=== PATIENT | male | born 1960 | race Two or more races ===

== ENCOUNTER 2024-10-02 01:10 | Inpatient (IN) | payer BC, OTHER ==
[~2024-10-02] VITALS: Ht 180.3 cm; Wt 94.0 kg
[2024-10-02] VITALS (17 sets, daily range): BP systolic 119–161; BP diastolic 63–96; PULSE 45–56; RESP 12–19; TEMP 97.1–98.2; O2SAT 95–99
--- NOTE | 2024-10-02 01:29 | ED.PDOC ---
History of Present Illness HPI Comments 64 y/o M, with a Hx of HTN, is BIBA for c/o non-radiating, sternal chest pain, today. Patient endorses on having intermittent onset of chest pressure for the past 3x weeks, with most recent and longest onset occurring at 0010, this morning. Patient comments on taking 4x baby ASA prior to EMS arrival. Per EMS report, patient was found hypertensive, with two readings of 230/150 and 220/115. All remaining vitals were within normal limits. Patient is further reported to have been off HTN medications, due to managing via lifestyle changes, with a baseline normal systolic blood pressure range of 170-180's. Patient denies having any shortness of breath, palpitations, nausea, vomiting, fever, chills, or other associated symptoms or modifiers at this time. Time Seen by MD: 01:10 Reviewed Notes: Nurses Notes, Supervisor Insulation Notes, Medications, Allergies Allergies: Coded Allergies: Acetaminophen (Verified Allergy, Unknown, 10/02/24) Hydrocodone (Verified Allergy, Unknown, 10/02/24) Information Source: Patient, Emergency Med Personnel Mode of Arrival: EMS Severity: Moderate Timing: Weeks Duration: Since onset Prehospital treatment: 12 Lead EKG, Convenience Store Manager Past Medical History PAST MEDICAL HISTORY: HTN Surgical History (Other): left shoulder rotator cuff Sx Family History Family History: Reviewed,noncontributory to illness, No family hx of Cancer, No family hx of Heart nicole, No family hx of HTN, No family hx ofKidney nicole, No family hx of Liver nicole, No family hx of Lung nicole, No family hx of Stroke, Family hx of DM Social History Smoker: Non-Smoker Alcohol: Occasionally Drugs: Denies Drug Use Lives In: Home Constitutional: denies: chills, diaphoresis, fatigue, fever, malaise, sweats, weakness, others EENTM: denies: blurred vision, double vision, ear bleeding, ear discharge, ear drainage, ear pain, ear ringing, eye pain, eye redness, hearing loss, mouth pain, mouth swelling, nasal discharge, nose bleeding, nose congestion, nose pain, photophobia, tearing, throat pain, throat swelling, voice changes, others Respiratory: denies: cough, hemoptysis, orthopnea, SOB at rest, shortness of breath, SOB with excertion, stridor, wheezing, others Cardiovascular: reports: chest pain; denies: dizzy spells, diaphoresis, Dyspnea on exertion, edema, irregular heart beat, left arm pain, lightheadedness, palpitations, PND, syncope, others Gastrointestinal: denies: abdomen distended, abdominal pain, blood streaked bowels, constipated, diarrhea, dysphagia, difficulty swallowing, hematemesis, melena, nausea, poor appetite, poor fluid intake, rectal bleeding, rectal pain, vomiting, others Genitourinary: denies: burning, dysuria, flank pain, frequency, hematuria, incontinence, penile discharge, penile sore, pain, testicle pain, testicle swelling, urgency, others Neurological: denies: dizziness, fainting, headache, left sided numbness, left sided weakness, numbness, paresthesia, pre-existing deficit, right sided numbn ess, right sided weakness, seizure, speech problems, tingling, tremors, weakness, others Musculoskeletal: denies: back pain, gout, joint pain, joint swelling, muscle pain, muscle stiffness, neck pain, others Integumetry: denies: bruises, change in color, change in hair/nails, dryness, laceration, lesions, lumps, rash, wounds, others Allergic/Immunocompromised: denies: Difficulty Healing, Frequent Infections, Hives, Itching, others Hematologic/Lymphatic: denies: anemia, blood clots, easy bleeding, easy bruising, swollen glands, others Endocrine: denies: excessive hunger, excessive sweating, excessive thirst, excessive urination, flushing, intolerance to cold, intolerance to heat, unexplained weight gain, unexplained weight loss, others Psychiatric: denies: anxiety, bipolar disorder, depression, hopeless, panic disorder, schizophrenia, sleepless, suicidal, others All Other Systems: Reviewed and Negative Physical Exam General Appearance: Moderate Distress HEENT: Normal ENT Inspection, Pharynx Normal, TMs Normal Neck: Full Range of Motion, Non-Tender, Normal, Normal Inspection Respiratory: Chest Non-Tender, Lungs Clear, No Accessory Muscle Use, No Respiratory Distress, Normal Breath Sounds Cardiovascular: No Edema, No JVD, No Murmur, No Gallop, Normal Peripheral Pulses, Regular Rate/Rhythm Breast Exam: Deferred Gastrointestinal: No Organomegaly, Non Tender, No Pulsatile Mass, Normal Bowel Sounds, Soft Genitalia: Deferred Pelvic: Deferred Rectal: Deferred Extremities: No calf tenderness, Normal capillary refill, Normal inspection, Normal range of motion, Non-tender, No pedal edema Musculoskeletal : Apperance: Normal Neurologic: Alert, emulsion operator II-XII nml as Tested, Motor Weakness, Normal Affect, Normal Mood, No Sensory Deficits Cerebellar Function: Normal Reflexes: Normal Skin: Dry, Normal Color, Warm Lymphatic: No Adenopathy Was a procedure done? Was a procedure done?: No EKG EKG : Pulse Rate (adult): 73 [place]: Normal Cardiac Rhythm: NSR Block: None Hypertrophy: None ST: Ant (ST elevation in anterior leads) Differential Dx Considerations may include: [place], ACS, PE, anxiety, angina, costochondritis, pericarditis, musculoskeletal pain X-Ray, Labs, Meds, VS Vital Signs Date Time Temp Pulse Resp B/P (MAP) Pulse Ox O2 Delivery O2 Flow Rate FiO2 10/02/24 02:27 97.8 53 13 144/83 (103) 98 97.8 10/02/24 02:11 59 10/02/24 01:29 73 10/02/24 01:13 73 10/02/24 01:10 98.0 85 24 210/130 (156) 100 Lab Test 10/02/24 02:04 10/02/24 01:40 10/02/24 01:20 Range/Units Troponin I High Sensitivity 4880 *H 5104 *H </=54 ng/L Urine Color Light-yellow Yellow Urine Clarity Clear Clear Urine pH 5.5 5.0-9.0 Urine Specific [place] 1.007 1.001-1.035 Urine Protein Negative Negative Urine Ketones 1+ H Negative Urine Blood Negative Negative /uL Urine Nitrite Negative Negative Urine Bilirubin Negative Negative Urine Urobilinogen Normal Negative mg/dL Urine Leukocyte Esterase Negative Negative /uL Urine RBC <1 0 - 3 /hpf Urine WBC 1 0 - 3 /hpf Urine Squamous Epithelial Cells Few <5 /hpf Urine Bacteria None seen None Seen /hpf Urine Glucose Normal Normal mg/dL White Blood Count 5.2 4.4-10.8 10^3/uL Red Blood Count 4.88 4.5-5.90 10^6/uL Hemoglobin 15.4 13.5-17.5 g/dL Hematocrit 46.4 41.0-53.0 % Mean Corpuscular Volume 95.2 80.0-100.0 fL Mean Corpuscular Hemoglobin 31.7 28.0-32.0 pg Mean Corpuscular Hemoglobin Concent 33.3 32.0-36.0 g/dL Red Cell Distribution Width 13.8 11.8-14.3 % Platelet Count 236 140-450 10^3/uL Mean Platelet Volume 9.3 6.9-10.8 fL Neutrophils (%) (Auto) 55.1 37.0-80.0 % Lymphocytes (%) (Auto) 33.4 10.0-50.0 % Monocytes (%) (Auto) 7.9 0.0-12.0 % Eosinophils (%) (Auto) 3.3 0.0-7.0 % Basophils (%) (Auto) 0.3 0.0-2.0 % Neutrophils # (Auto) 2.8 1.6-8.6 10 ^3/uL Lymphocytes # (Auto) 1.7 0.4-5.4 10 ^3/uL Monocytes # (Auto) 0.4 0-1.3 10 ^3/uL Eosinophils # (Auto) 0.2 0-0.8 10 ^3/uL Basophils # (Auto) 0 0-0.2 10 ^3/uL Nucleated Red Blood Cells 0.0 % Prothrombin Time Pending Prothrombin Time INR Pending Activated Partial Thromboplast Time Pending Sodium Level 141 136-145 mmol/L Potassium Level 4.0 3.5-5.1 mmol/L Chloride Level 105 98-107 mmol/L Carbon Dioxide Level 23 20-31 mmol/L Anion Gap 13 5-15 Blood Urea Nitrogen 20 9-23 mg/dL Creatinine 0.94 0.700-1.30 mg/dL Glomerular Filtration Rate Calc 91 >90 mL/min BUN/Creatinine Ratio 21.3 H 10.0-20.0 Serum Glucose 99 74-106 mg/dL Calcium Level 10.9 H 8.7-10.4 mg/dL Total Bilirubin 0.6 0.2-1.0 mg/dL Aspartate Amino Transferase (AST) 20 13-40 U/L Alanine Aminotransferase (ALT) 21 7-40 U/L Alkaline Phosphatase 62 46-116 U/L B-Type Natriuretic Peptide 196.96 0-100 pg/mL Total Protein 6.9 5.7-8.2 g/dL Albumin 4.4 3.2-4.8 g/dL The CBC is within normal limits The chemistry panel is within normal limits The urine test is negative for infection At this time, the 1st troponin level came back elevated at 5104 The next troponin came back at 4880 We did review the EKG when the patient 1st arrived and we did send it to the STEMI news reel cameraman. He determined that it was not a STEMI smears We have repeated the EKG after the 1st troponin level came back and sent it back to the news reel cameraman but he stated that he will be taking the patient in the laborer [facility] in the morning. The patient was still not considered a STEMI We did give the patient a nitroglycerin drip because of the hypertensive crisis The patient also received heparin We discussed findings with the patient and he is in agreement with the management the patient was being admitted. Images Reviewed?: Images reviewed and evaluated by me Time of 1ST Reevaluation: 01:30 Reevaluation 1ST: Unchanged Patient Education/Counseling: Diagnosis, Treatment, Prognosis Family Education/Counseling: No Family Present Departure 1 Departure Time of Disposition: 03:09 Impression: Primary Impression: Acute chest pain Additional Impression: Non-STEMI (non-ST elevated myocardial infarction) Disposition: 09 ADMITTED INPATIENT Admit to: [facility] Condition: Fair Critical Care Note Critical Care Time?: Yes (55 min-critical care time only) Stability Stability form required: Yes Unstable for transfer: ICU, CCU, PCU, [facility] (Intensive VS monitoring), ED Physi nena Assesment (Clinical assesment) Heart Score Heart Score: Heart Score Response (Comments) Value History Moderate Suspicious [address]-Deviation 2 Age 45-64 1 Risk Factors 1 or 2 risk factors 1 Troponin >3 x's Normal limit 2 Total 7 I personally scribed for RAOUL RAMIREZ MD ([email or web address]) on 10/02/24 at 01:29. Electronically submitted by Jeremi Navarro [email or web address]). RAOUL RAMIREZ MD Oct 02, 2024 01:29
[2024-10-02] MEDS: ONDANSETRON HCL 4 MG/2 ML VIAL IV ONE (01:30)
[2024-10-02] MEDS: MORPHINE SULFATE 4 MG/ML SYR/VIAL IV ONE (01:30)
[2024-10-02 01:36] LABS: Basophils # (auto) 0 10 ^3/uL (0-0.2); Basophils % (auto) 0.3 % (0.0-2.0); Eosinophils # (auto) 0.2 10 ^3/uL (0-0.8); Eosinophils % (auto) 3.3 % (0.0-7.0); Hematocrit 46.4 % (41.0-53.0); Hemoglobin 15.4 g/dL (13.5-17.5); Lymphocytes # (auto) 1.7 10 ^3/uL (0.4-5.4); Lymphocytes % (auto) 33.4 % (10.0-50.0); Mean Corpuscular Hemoglobin 31.7 pg (28.0-32.0); Mean Corpuscular Hgb Conc. 33.3 g/dL (32.0-36.0); Mean Corpuscular Volume 95.2 fL (80.0-100.0); Monocytes # (auto) 0.4 10 ^3/uL (0-1.3); Monocytes % (auto) 7.9 % (0.0-12.0); Neutrophils # (auto) 2.8 10 ^3/uL (1.6-8.6); Neutrophils % (auto) 55.1 % (37.0-80.0); Platelet Count (auto) 236 10^3/uL (140-450); Red Blood Cells 4.88 10^6/uL (4.5-5.90); Red Cell Distribution Width 13.8 % (11.8-14.3); White Blood Cell 5.2 10^3/uL (4.4-10.8)
[2024-10-02 01:52] LABS: Alanine Aminotransferase 21 U/L (7-40); Albumin 4.4 g/dL (3.2-4.8); Alkaline Phosphatase 62 U/L (46-116); Anion Gap 13 (5-15); Aspartate Aminotransferase 20 U/L (13-40); BUN/Creatinine Ratio 21.3 (10.0-20.0); Blood Urea Nitrogen 20 mg/dL (9-23); Calcium 10.9 mg/dL (8.7-10.4); Carbon Dioxide 23 mmol/L (20-31); Chloride 105 mmol/L (98-107); Glucose 99 mg/dL (74-106); Sodium 141 mmol/L (136-145)
[2024-10-02 01:53] LABS: Bilirubin, Total 0.6 mg/dL (0.2-1.0); Total Protein 6.9 g/dL (5.7-8.2)
[2024-10-02] MEDS: NITROGLYCERIN 50MG/250ML 250 ML IV ONE (02:00)
[2024-10-02 02:16] LABS: Urine Bacteria None Seen /hpf (None Seen)
[2024-10-02 02:23] LABS: Urine Blood Negative /uL (Negative); Urine Clarity Clear (Clear); Urine Color Light-Yellow (Yellow); Urine Protein, UAD Negative (Negative); Urine Specific Gravity 1.007 (1.001-1.035); Urine Urobilinogen Normal (Negative); Urine WBC 1 /hpf (0 - 3); Urine pH 5.5 (5.0-9.0)
--- NOTE | 2024-10-02 03:27 | DVH ---
Examination: CXRP CLINICAL INDICATION: CP. COMPARISON: None. TECHNIQUE: Frontal radiograph of the chest was obtained. FINDINGS: Inhomogeneous radiopacities in left lower lung, suggestive of patchy consolidation. No pleural effusion on either side in current study. There is no pneumothorax. No evidence of cardiomegaly. No acute osseous abnormality is seen. Osteoarthritic changes at the visualized left glenohumeral joint. IMPRESSION: Patchy consolidation in left lower lung. Electronically Signed 10/02/2024 03:18 Estephania Cabrera
[2024-10-02 03:31] LABS: INR 0.97 (0.9-1.15); Prothrombin Time 10.3 sec (9.3-11.8)
--- NOTE | 2024-10-02 04:17 | ECG ---
[facility] Test Date: 2024-10-02 Test Time: 02:11:53 Pat Name: TODD COPE Department: ER Room: 0202T Gender: M Cafeteria Clerk: RAAD : 1960 Requested By: RAOUL RAMIREZ Order Number: [id number] Reading MD: Jhon Simmons Measurements Intervals [place] Rate: 59 P: 50 AK: 155 QRS: 36 QRSD: 112 T: 91 QT: 423 QTc: 419 Interpretive Statements Sinus rhythm Anteroseptal infarct, age indeterminate Minimal ST elevation, inferior leads Electronically Signed On 10-03-2024 17:41:16 PST by Jhon Simmons Please click the below link to view image of tracing.
--- NOTE | 2024-10-02 04:17 | ECG ---
[facility] Test Date: 2024-10-02 Test Time: 01:13:33 Pat Name: TODD COPE Department: ER Room: 0202T Gender: M Knowledge Management Advisor: ER : 1960 Requested By: RAOUL RAMIREZ Order Number: [id number] Reading MD: Jhon Simmons Measurements Intervals [place] Rate: 73 P: 37 NE: 164 QRS: 34 QRSD: 99 T: 85 QT: 397 QTc: 438 Interpretive Statements Sinus rhythm Probable anteroseptal infarct, recent Minimal ST elevation, inferior leads Electronically Signed On 10-03-2024 17:41:00 PST by Jhon Simmons Please click the below link to view image of tracing.
--- NOTE | 2024-10-02 04:17 | ECG ---
[facility] Test Date: 2024-10-02 Test Time: 04:13:22 Pat Name: TODD COPE Department: ER Room: 0202T Gender: M Senior Information Security Consultant: RAAD : 1960 Requested By: RAOUL RAMIREZ Order Number: [id number] Reading MD: Jhon Simmons Measurements Intervals [place] Rate: 47 P: 52 MO: 155 QRS: 39 QRSD: 96 T: 86 QT: 448 QTc: 396 Interpretive Statements Sinus bradycardia Anteroseptal infarct, age indeterminate Minimal ST elevation, inferior leads Electronically Signed On 10-03-2024 17:41:35 PST by Jhon Simmons Please click the below link to view image of tracing.
[2024-10-02] MEDS: HEPARIN DRIP/D5W 100UNITS/ML 250 ML IV SCH (04:25)
[2024-10-02] MEDS ORDERED: ONDANSETRON HCL 4 MG/2 ML VIAL IV PRN (05:15)
[2024-10-02] MEDS ORDERED: MORPHINE SULFATE INJ 2 MG/ml SYRG IV PRN (05:15)
[2024-10-02] MEDS ORDERED: NITROGLYCERIN 0.4 MG SL TAB SL PRN (05:15)
--- NOTE | 2024-10-02 06:07 | DVHHP2 ---
History of Present Illness Reason for Visit: Chest pain History of Present Illness 64-year-old male presents for evaluation of chest pain. Patient reports a three-week history of intermittent left-sided sharp chest pain that would radiate to his left arm causing pain/numbness. He states his symptoms would subside within 10 minutes. He states that yesterday the symptoms lasted longer than 30 minutes so he presented for further evaluation. He also reports taking an unknown dosage of metoprolol from his friend yesterday because his blood pressure was reading in the 160s. Patient does have a history of hypertension, last medication taken was nine years ago. Denies shortness or breath, nausea or vomiting. Denies any other acute complaints at the moment. Past Medical History Hypertension Past Surgical History Left shoulder Family History Noncontributory Smoke: No ALCOHOL: occassional Drugs: None Lives: with Family Review of Systems Review of Systems Review of systems are currently negative otherwise addressed in HPI. Allergies: Coded Allergies: Acetaminophen (Verified Allergy, Unknown, 10/02/24) Hydrocodone (Verified Allergy, Unknown, 10/02/24) Medications Current Medications Medications Dose Ordered Sig/Ty Route Start Time Stop Time Status Last Admin Dose Admin Heparin Sodium/ Dextrose 250 ml @ 10 mls/hr Q24H IV 10/02/24 04:30 10/02/24 04:25 10 MLS/HR Ondansetron HCl 4 mg Q4HP PRN IV 10/02/24 05:15 Nitroglycerin 0.4 mg Q5MINP PRN SL 10/02/24 05:15 Morphine Sulfate 2 mg Q30M PRN IV 10/02/24 05:15 Aspirin 162 mg DAILY PO 10/02/24 10:00 Atorvastatin Calcium 20 mg HS PO 10/02/24 22:00 Exam Vital Signs Vital Signs Date Time Temp Pulse Resp B/P (MAP) Pulse Ox O2 Delivery O2 Flow Rate FiO2 10/02/24 05:00 46 9 112/71 (85) 98 10/02/24 03:00 Room Air* 0 21 10/02/24 02:27 97.8 97.8 Exam Gen: 64-year-old male in mild distress Skin: Warm, dry, normal color and texture, no rash. HEENT: Normocephalic atraumatic, mucous membranes moist and pink. Neck: Cervical and supraclavicular nodes normal without enlargement, trachea is midline, thyroid gland is normal without masses. Pulmonary: Clear to auscultation and percussion bilaterally. Cardiac: Regular rate and rhythm. No murmur Abdomen: Soft, nontender, nondistended, bowel sounds present all 4 quadrants, no guarding, no rigidity, no organomegaly. Extremities: No cyanosis, clubbing, no edema Neuro: Cranial nerves II through XII grossly intact, normal affect and speech, no focal motor deficits. Labs/Xrays ORDERING PHYSICIAN: RAOUL RAMIREZ MD PROCEDURE(s): CXRP - CHEST PORTABLE REASON: CP ORDER NUMBER(s): [id number], ACCESSION NUMBER(s): [id number] Examination: CXRP CLINICAL INDICATION: CP. COMPARISON: None. TECHNIQUE: Frontal radiograph of the chest was obtained. FINDINGS: Inhomogeneous radiopacities in left lower lung, suggestive of patchy co nsolidation. No pleural effusion on either side in current study. There is no pneumothorax. No evidence of cardiomegaly. No acute osseous abnormality is seen. Osteoarthritic changes at the visualized left glenohumeral joint. IMPRESSION: Patchy consolidation in left lower lung. Electronically Signed 10/02/2024 03:18 Estephania Cabrera ATED BY: TANISHA LASSITER MD DICTATED DATE/TIME: 10/02/24 0318 Labs Test 10/02/24 04:04 10/02/24 01:40 10/02/24 01:20 Range/Units Troponin I High Sensitivity 4573 *H </=54 ng/L Urine Color Light-yellow Yellow Urine Clarity Clear Clear Urine pH 5.5 5.0-9.0 Urine Specific [place] 1.007 1.001-1.035 Urine Protein Negative Negative Urine Ketones 1+ H Negative Urine Blood Negative Negative /uL Urine Nitrite Negative Negative Urine Bilirubin Negative Negative Urine Urobilinogen Normal Negative mg/dL Urine Leukocyte Esterase Negative Negative /uL Urine RBC <1 0 - 3 /hpf Urine WBC 1 0 - 3 /hpf Urine Squamous Epithelial Cells Few <5 /hpf Urine Bacteria None seen None Seen /hpf Urine Glucose Normal Normal mg/dL White Blood Count 5.2 4.4-10.8 10^3/uL Red Blood Count 4.88 4.5-5.90 10^6/uL Hemoglobin 15.4 13.5-17.5 g/dL Hematocrit 46.4 41.0-53.0 % Mean Corpuscular Volume 95.2 80.0-100.0 fL Mean Corpuscular Hemoglobin 31.7 28.0-32.0 pg Mean Corpuscular Hemoglobin Concent 33.3 32.0-36.0 g/dL Red Cell Distribution Width 13.8 11.8-14.3 % Platelet Count 236 140-450 10^3/uL Mean Platelet Volume 9.3 6.9-10.8 fL Neutrophils (%) (Auto) 55.1 37.0-80.0 % Lymphocytes (%) (Auto) 33.4 10.0-50.0 % Monocytes (%) (Auto) 7.9 0.0-12.0 % Eosinophils (%) (Auto) 3.3 0.0-7.0 % Basophils (%) (Auto) 0.3 0.0-2.0 % Neutrophils # (Auto) 2.8 1.6-8.6 10 ^3/uL Lymphocytes # (Auto) 1.7 0.4-5.4 10 ^3/uL Monocytes # (Auto) 0.4 0-1.3 10 ^3/uL Eosinophils # (Auto) 0.2 0-0.8 10 ^3/uL Basophils # (Auto) 0 0-0.2 10 ^3/uL Nucleated Red Blood Cells 0.0 % Prothrombin Time 10.3 9.3-11.8 sec Prothrombin Time INR 0.97 0.9-1.15 Activated Partial Thromboplast Time 32.0 24.5-34.5 SEC Sodium Level 141 136-145 mmol/L Potassium Level 4.0 3.5-5.1 mmol/L Chloride Level 105 98-107 mmol/L Carbon Dioxide Level 23 20-31 mmol/L Anion Gap 13 5-15 Blood Urea Nitrogen 20 9-23 mg/dL Creatinine 0.94 0.700-1.30 mg/dL Glomerular Filtration Rate Calc 91 >90 mL/min BUN/Creatinine Ratio 21.3 H 10.0-20.0 Serum Glucose 99 74-106 mg/dL Calcium Level 10.9 H 8.7-10.4 mg/dL Total Bilirubin 0.6 0.2-1.0 mg/dL Aspartate Amino Transferase (AST) 20 13-40 U/L Alanine Aminotransferase (ALT) 21 7-40 U/L Alkaline Phosphatase 62 46-116 U/L B-Type Natriuretic Peptide 196.96 0-100 pg/mL Total Protein 6.9 5.7-8.2 g/dL Albumin 4.4 3.2-4.8 g/dL Assessment/Plan Assessment/Plan Assessment NSTEMI Hypertensive urgency Plan Admit the patient to [facility] to the hospitalist ACS protocol Continue heparin drip Continue nitroglycerin drip as needed Total critical care time excluding procedures performed this 50 minutes. Plan discussed with: Patient My Orders Orders - CESARIO GOETZ Procedure Category Date Status Time * Cardiology Consult CONS 10/02/24 Transmitted 05:15 Basic Metabolic Panel LAB 10/03/24 Verified 04:00 Admit ADMIT 10/02/24 Transmitted 05:15 Ondansetron Hcl PHA 10/02/24 In Process (Zofran) 05:15 Complete Blood Count LAB 10/03/24 Verified 04:00 Npo (Nothing By DIET 10/02/24 Transmitted Mouth) Diet Breakfast Echo 2d Mode Cardiac US 10/02/24 Logged DOP 05:15 Condition: Critical [facility] 10/02/24 In Process 05:15 Bedrest With Bathroom [facility] 10/02/24 In Process Privileg 05:15 Nitroglycerin [facility] 10/02/24 In Process Sublingual (Ntrostat 05:15 Morphine Sulfate [facility] 10/02/24 In Process Injection 05:15 Notify Md Of Changes [facility] 10/02/24 In Process From Base 05:15 Rejoiner For [facility] 10/02/24 In Process 24 Hours 05:15 Emergency Dysrhythmia [facility] 10/02/24 In Process Protocol 05:15 Rhythm Strips Once [facility] 10/02/24 In Process Every Shift 05:15 Oxygen By Nasal RT 10/02/24 Transmitted Cannula 05:15 Aspirin Tablet PHA 10/02/24 In Process 10:00 Atorvastatin (Lipitor) PHA 10/02/24 In Process 22:00 Date of Service: Oct 02, 2024 Billing Provider: CESARIO GOETZ Common Visit Codes: [id number] CARE 30-74 MIN CESARIO GOETZ Oct 02, 2024 06:07
[2024-10-02 08:56] LABS: Magnesium 2.4 mg/dL (1.6-2.6)
[2024-10-02] MEDS: IODIXANOL 320MG/ML 100ML BTL IV ONE ×2 (09:43→10:27)
[2024-10-02] MEDS: fentaNYL CITRATE 100 MCG/2 ML VL ONE (09:53)
[2024-10-02] MEDS: ANGIOMAX 250 MG VIAL IV ONE (09:53)
[2024-10-02] MEDS: LIDOCAINE 2%HCL (LOCAL ANESTH.) INJ 20ML MDV ONE (09:53)
[2024-10-02] MEDS: SODIUM CHL 0.9% 50 ML ONE (09:53)
[2024-10-02] MEDS: MIDAZOLAM HCL 2MG/2ML 2ml VIAL (1mg/ml) ONE (09:53)
[2024-10-02] MEDS: VERAPAMIL 2.5MG/ML INJ 2ML VIAL IV ONE (09:53)
--- NOTE | 2024-10-02 09:58 | DVHINCON2 ---
Date Seen: Oct 02, 2024 Referring Physician RANDOLPH Alexander Reason for Consultation NSTEMI History of Present Illness This is a 64-year-old male patient who presents to the emergency room with chief complaint of chest pain for three weeks. The patient reports that he has been experiencing intermittent chest pain for the last three weeks but came to the emergency room after chest pain was not relieved for over 30 minutes at home, which has been the longest he has experienced the chest pain at one time. He describes the chest pain as unprovoked, intermittent, sharp in nature, substernal with radiation across left chest and down left arm. Associated symptoms include shortness of breath and fatigue. The patient reports that he has been using breathing exercises at home to help when he has these episodes of chest pain. Of note, the patient came in to the emergency room with a blood pressure reaching as high as 210/130. The patient also reports taking medication that was not prescribed to him to control his blood pressure. He admits to taking 100 mg orally of metoprolol once on 09/30/24 and again on 10/01/2024 prior to emergency room arrival. He states that this medication is not his and he received it from a family friend. Initial twelve lead electrocardiogram reveals normal sinus rhythm with S-T segment changes to anteroseptal leads. Initial troponin level [place] 5104ng/L with flat trend thereafter. Significant past medical history includes hypertension, dyslipidemia, gout, and obesity. Patient reports he has not seen a primary care provider since 2015. He reports managing his blood pressure and cholesterol levels with diet and exercise at home. Past Medical History Past medical history reviewed. No other significant than mentioned above. Past Surgical History Left rotator cuff repair Family History Family history reviewed. Social History Patient denies any tobacco or nicotine use Patient denies any illicit drug use Patient reports history of alcohol abuse with drinking approximately four beers per day, states he quit drinking all alcohol approximately four weeks ago. Allergies: Coded Allergies: Acetaminophen (Verified Allergy, Unknown, 10/02/24) Hydrocodone (Verified Allergy, Unknown, 10/02/24) Home Meds Denies taking any prescribed medication at home Current Medications Current Medications Medications (Trade) Dose Ordered Sig/Ty Route PRN Reason Start Time Stop Time Status Last Admin Heparin Sodium/ Dextrose 250 ml @ 10 mls/hr Q24H IV 10/02/24 04:30 10/02/24 04:25 Ondansetron HCl (Zofran) 4 mg Q4HP PRN IV NAUSEA / VOMITING 10/02/24 05:15 Nitroglycerin (Ntrostat Sublingual) 0.4 mg Q5MINP PRN SL FOR CHEST PAIN 10/02/24 05:15 Morphine Sulfate 2 mg Q30M PRN IV FOR CHEST PAIN 10/02/24 05:15 Aspirin 162 mg DAILY PO 10/02/24 10:00 Atorvastatin Calcium (Lipitor) 20 mg HS PO 10/02/24 22:00 Review of Systems Constitutional: No symptom reported Ears, Nose, & Throat: No symptom reported Eyes: No symptom reported Neurological: No symptoms reported Pulmonary/Respiratory: Shortness of breath Cardiovascular: Chest pain Gastrointestinal: No symptom reported Genitourinary: No symptom reported Musculoskeletal: No symptom reported Skin: No symptom reported Psychiatric: No symptom reported Endocrine: No symptom reported Hematologic/Lymphatic: No symptom reported Vital Signs Vital Signs Date Time Temp Pulse Resp B/P (MAP) Pulse Ox O2 Delivery O2 Flow Rate FiO2 10/02/24 08:05 47 16 118/71 (87) 97 10/02/24 03:00 Room Air* 0 10/02/24 02:27 97.8 97.8 Physical Exam General Appearance: Cooperative. Obese Pulmonary/Respiratory: Clear, bilateral breaths sounds. Cardiovascular/Chest: Regular rate and rhythm. Peripheral Pulses: 2+ Radial (R). 2+ Radial (L). 2+ Pedal (R). 2+ Pedal (L) Abdominal Exam: Normal bowel sounds. Ankle Exam: Negative ankle edema Lower extremities: Negative lower extremity edema Neuro/Mental Status: A/OX4, coherent. Thoughts/Psych: Normal thought pattern. Appropriate mood and affect. Good judgment and insight. Appearance: No acute distress. Skin Exam: Normal inspection. Normal color. Warm and dry. Labs/Diagnostic Data Labs Test 10/02/24 04:04 10/02/24 01:40 10/02/24 01:20 Range/Units Troponin I High Sensitivity 4573 *H </=54 ng/L Urine Color Light-yellow Yellow Urine Clarity Clear Clear Urine pH 5.5 5.0-9.0 Urine Specific [place] 1.007 1.001-1.035 Urine Protein Negative Negative Urine Ketones 1+ H Negative Urine Blood Negative Negative /uL Urine Nitrite Negative Negative Urine Bilirubin Negative Negative Urine Urobilinogen Normal Negative mg/dL Urine Leukocyte Esterase Negative Negative /uL Urine RBC <1 0 - 3 /hpf Urine WBC 1 0 - 3 /hpf Urine Squamous Epithelial Cells Few <5 /hpf Urine Bacteria None seen None Seen /hpf Urine Glucose Normal Normal mg/dL White Blood Count 5.2 4.4-10.8 10^3/uL Red Blood Count 4.88 4.5-5.90 10^6/uL Hemoglobin 15.4 13.5-17.5 g/dL Hematocrit 46.4 41.0-53.0 % Mean Corpuscular Volume 95.2 80.0-100.0 fL Mean Corpuscular Hemoglobin 31.7 28.0-32.0 pg Mean Corpuscular Hemoglobin Concent 33.3 32.0-36.0 g/dL Red Cell Distribution Width 13.8 11.8-14.3 % Platelet Count 236 140-450 10^3/uL Mean Platelet Volume 9.3 6.9-10.8 fL Neutrophils (%) (Auto) 55.1 37.0-80.0 % Lymphocytes (%) (Auto) 33.4 10.0-50.0 % Monocytes (%) (Auto) 7.9 0.0-12.0 % Eosinophils (%) (Auto) 3.3 0.0-7.0 % Basophils (%) (Auto) 0.3 0.0-2.0 % Neutrophils # (Auto) 2.8 1.6-8.6 10 ^3/uL Lymphocytes # (Auto) 1.7 0.4-5.4 10 ^3/uL Monocytes # (Auto) 0.4 0-1.3 10 ^3/uL Eosinophils # (Auto) 0.2 0-0.8 10 ^3/uL Basophils # (Auto) 0 0-0.2 10 ^3/uL Nucleated Red Blood Cells 0.0 % Prothrombin Time 10.3 9.3-11.8 sec Prothrombin Time INR 0.97 0.9-1.15 Activated Partial Thromboplast Time 32.0 24.5-34.5 SEC Sodium Level 141 136-145 mmol/L Potassium Level 4.0 3.5-5.1 mmol/L Chloride Level 105 98-107 mmol/L Carbon Dioxide Level 23 20-31 mmol/L Anion Gap 13 5-15 Blood Urea Nitrogen 20 9-23 mg/dL Creatinine 0.94 0.700-1.30 mg/dL Glomerular Filtration Rate Calc 91 >90 mL/min BUN/Creatinine Ratio 21.3 H 10.0-20.0 Serum Glucose 99 74-106 mg/dL Calcium Level 10.9 H 8.7-10.4 mg/dL Magnesium Level 2.4 1.6-2.6 mg/dL Total Bilirubin 0.6 0.2-1.0 mg/dL Aspartate Amino Transferase (AST) 20 13-40 U/L Alanine Aminotransferase (ALT) 21 7-40 U/L Alkaline Phosphatase 62 46-116 U/L B-Type Natriuretic Peptide 196.96 0-100 pg/mL Total Protein 6.9 5.7-8.2 g/dL Albumin 4.4 3.2-4.8 g/dL Triglycerides Level 210 H < 150 mg/dL Cholesterol Level 206 H < 200 mg/dL LDL Cholesterol 146 H < 100 mg/dL HDL Cholesterol 40 40-59 mg/dL Thyroid Stimulating Hormone (TSH) 2.05 0.55-4.78 uIU/mL Assessment NSTEMI, rule out coronary artery disease Hypertensive urgency, resolved Dyslipidemia Obesity History of alcohol abuse Plan/Recommendation We will continue the following plan/recommendations (Dr. Mcneil): * Echocardiogram to evaluate cardiac function * Continue heparin drip per pharmacy protocol * Chest pain protocol * HEMANT score: 4 points * HEART score: 7 points (high score) * Initiate statin therapy * Aggressive BP control * Risk factor modifications, counseled * Adherence to medication * Coronary angiogram with left heart catheterization Case discussed and reviewed with . Given the patient's clinical presentation, elevated troponin level, and twelve lead electrocardiogram, it was recommended that the patient undergo a coronary angiogram with left heart catheterization. The procedure was discussed with the patient in full detail including risks and benefits. Risks include but are not limited to bleeding, contrast induced nephropathy, stroke, and even . Patient understands and is agreeable to undergo the procedure. We will schedule the patient at soonest availability today (10/02/24). Thank you for allowing us to care for this patient. Please call with any questions or concerns. Critical care time spent: 40 minutes This medical document was created using an electronic medical record system with voice recognition software and computerized dictation system. Although this document has been carefully reviewed, there might still be some phonetic and typographical errors. Occasional wrong-word or ``sound-alike substitutions may have occurred due to the inherent limitations of voice recognition software. These areas are purely typographical due to imperfections of the software programs and do not reflect any compromise in the patient's medical care. Sloane muñoz read the chart carefully and recognize, using context, where these substitutions have occurred. Plan discussed with: Patient Date of Service: Oct 02, 2024 Billing Provider: DEDE MCNEIL MD Cardiology Common Codes: [id number] INP/OBS CARE (High) Cardiology Consultation Codes: [id number] CONSULT <45MIN BELINDA ROSADO CARTOON DESIGNER Oct 02, 2024 09:58
[2024-10-02] MEDS ORDERED: ASPirin 81 mg TAB PO SCH (10:00)
[2024-10-02] MEDS: CLOPIDOGREL BISULFATE 75 MG TAB ONE ×2 (10:49→10:50)
[2024-10-02] MEDS: ASPirin 325 MG TAB ONE (10:50)
--- NOTE | 2024-10-02 11:41 | DVHOP2 ---
Operative Report -Cardiology Report Details Date: 10/02/24 Preop Diagnosis: Late presentation anterior ST-elevation myocardial infarction. Postop Diagnosis: Coronary angiography revealed tight long tubular lesion involving the proximal LAD as well as the mid segments of the same vessel. In addition to tight stenosis of the distal left circumflex vessel. Both of which are stented using two drug-eluting stent to the LAD and single drug-eluting stent to the left circumflex vessel. Surgeon: Courtney Wall MD Anesthesiologist: Conscious sedation using25 mcg of fentanyl as well as a mg IV midazolam. Patient was observed for total of35 minutes under direct supervision of the primary recycling center operator. In the presence of the attending nurses. No obvious complication was detected. Anesthesia: Local Consent: The patient was informed of the risks and benefits of the procedure. These include but are not limited to complications of anesthesia, postoperative infection, incomplete relief of symptoms, recurrence of symptoms, damage to blood vessels, nerves and tendons, deep venous thrombosis, pulmonary embolism and possible need for repeat surgery in the future. Indications for Surgery: This is a 64-year-old male patient who presents to the emergency room with chief complaint of chest pain for three weeks. The patient reports that he has been experiencing intermittent chest pain for the last three weeks but came to the emergency room after chest pain was not relieved for over 30 minutes at home, which has been the longest he has experienced the chest pain at one time. He describes the chest pain as unprovoked, intermittent, sharp in nature, substernal with radiation across left chest and down left arm. Associated symptoms include shortness of breath and fatigue. The patient reports that he has been using breathing exercises at home to help when he has these episodes of chest pain. Of note, the patient came in to the emergency room with a blood pressure reaching as high as 210/130. The patient also reports taking medication that was not prescribed to him to control his blood pressure. He admits to taking 100 mg orally of metoprolol once on 09/30/24 and again on 10/01/2024 prior to emergency room arrival. He states that this medication is not his and he received it from a family friend. Initial twelve lead electroc ardiogram reveals normal sinus rhythm with S-T segment changes to anteroseptal leads. Initial troponin level of 5104ng/L with flat trend thereafter. Significant past medical history includes hypertension, dyslipidemia, gout, and obesity. Patient reports he has not seen a primary care provider since 2016. He reports managing his blood pressure and cholesterol levels with diet and exercise at home. Name of Procedure Performed 1. Left heart catheterization with left ventricular end-diastolic pressure measurement. 2. Selective right and left coronary angiography utilizing right transradial approach. 3. Conscious sedation using25 mcg of fentanyl as well as a mg of midazolam. 4. Primary PCI to prox and mid LAD using single drug-eluting stent to each segment. 5. Staged procedure to the left circumflex vessel which was done at the same set up using single drug-eluting stent. Procedure Details Procedure Details: Procedure note and vascular access: After informed consent was obtained, risks, benefits, complications, and alternatives were discussed in details with the patient who agrees to have the procedure done. At the beginning of the procedure the right wrist right coronary artery were prepped and draped in the regular sterile fashion. Patient received conscious sedation using25 mcg of fentanyl as well as a mg IV midazolam. Thereafter, a total of 2 cc of 1% xylocaine was living given locally to the right wrist area before a six Burkinan sheath was placed without difficulty using modified Seldinger technique. Patient received a total of 2.5 mg of verapamil as well as 100 mcg of nitroglycerin intra-arterial to prevent vasospasm. [place] five [place]kinan catheter as well as a J-tip wire were used to engage the coronary system. Total of 3000 heparin was given after the aortic arch was crossed with the guiding catheter over the wire. Findings were as follows: 1. Left heart catheterization with left ventricular end-diastolic pressure measurement: With the help of a tiger five Burkinan catheter as well as a J-tip wire we were able to cross the left ventricle and measure the left ventricular end-diastolic pressure which was elevated at 17 mm of mercury. There was no gradient across the aortic valve on the pullback. 2. Selective right and left coronary angiography utilizing right transradial approach: 1. The left main comes off the left coronary cusp it is a large widely patent vessel it bifurcates into a large left anterior descending artery as well as large left circumflex vessel. There is no significant atherosclerotic plaquing in the left main. 2. The left anterior descending artery it is a large vessel with transapical course it gives rise to two large diagonal branches. At the proximal part of the LAD there is a long tubular lesion at 90%. Followed by HEMANT one flow. There is distal collateral from the right system providing to the distal part of the LAD. 3. The left circumflex system is moderate in size. It gives rise to two obtuse marginal branches. At the distal part of the left circumflex system there is long tubular lesion at 90% after the takeoff of the 2nd obtuse marginal branch. 4. The right coronary artery is large dominant system it bifurcates distally into large posterior descending artery as well as a large posterolateral branch. It has mild irregularity of the mid to distal part but no significant stenosis was noted. 3. Primary PCI to culprit LAD lesions: The diagnostic catheter was exchanged for an XB 3.5 guiding catheter, C-arm blue wire was used to engage the left system, at the traversing both lesion both lesions were pre-dilated using two by [address] to 12 atmospheric pressure, stenting was then made to the proximal part using three by 30 LELAND Winder drug-eluting stent, and 2.5 x 18 to the distal part, with the excellent final result. The distal part was post dilated using 2.[address] to 18 atmospheric pressure with excellent final result. 4. Staged PCI to left circumflex vessel of the same set up: After intervening on the culprit vessel, we replaced the wire into the left circumflex vessels all the way to the distal bed. And then pre-dilated the lesion using the same balloon and stent it get using 2.5 x 26 mm drug-eluting stent with excellent final result. 5. Antiplatelet and anticoagulation during the procedure: Patient received loading dose of 600 mg of Plavix in addition to 325 mg of baby aspirin. He received IV bivalirudin during out the procedure for anticoagulation. Patient tolerated the procedure very well without obvious complication. Impression and plan: 1. Late presentation anterior ST-elevation [place] with the culprit LAD subtotal occlusion at HEMANT one flow, that was improved after two stent placement to HEMANT three flow. 2. Staged procedure of the distal left circumflex artery using single drug- eluting stent with excellent final result. 3. Patient has quite elevated left ventricular end-diastolic pressure indicating underlying diastolic heart failure in addition to likelihood of systolic dy sfunction. 4. Patient would need echocardiography to assess left ventricular ejection fraction, left ventricular ejection fraction is 40 % or less I would recommend starting goal-directed therapy as per guidelines. 5. Patient would need aggressive medical therapy with a high-dose statin to achieve target LDL level of less than 50 mg/dL addition to dual antiplatelet therapy for minimum of12 months, followed by single antiplatelet therapy indefinitely. Condition Good [facility] Clinical Frailty Scale [facility] Clinical Frailty Scale: Very Fit Stress Test Stress Test Performed: No Dominance Dominance: Right HEMANT HEMANT Flow: Post- Intervention (HEMANT-3), Pre-Intervention (HEMANT-1) Lesion Lesion Complexity: High/C Residual Stenosis post procedu: 0% Disposition COURTNEY WALL MD Oct 02, 2024 11:41
[2024-10-02 19:28] LABS: INR 1.03 (0.9-1.15); Partial Thromboplastin Time 34.8 SEC (24.5-34.5); Prothrombin Time 10.9 sec (9.3-11.8)
[2024-10-02] MEDS ORDERED: ATORVASTATIN 20 MG TAB PO SCH (22:00)
[2024-10-02] MEDS: ATORVASTATIN 20 MG TAB PO SCH (22:10)
--- NOTE | 2024-10-02 23:01 | DVHPN2 ---
Subjective 64-year-old male wPMHx hypertension, dyslipidemia, gout, and obesity comes to ED, p/w CC chest pain x 3 weeks. Intermittent chest pain for the last three weeks but came to the emergency room after chest pain was not relieved for over 30 minutes at home, which has been the longest he has experienced the chest pain at one time. He describes the chest pain as unprovoked, intermittent, sharp in nature, substernal with radiation across left chest and down left arm. Associated symptoms include shortness of breath and fatigue. update - 10/02 - s/p cath. chest pain free currently. has some FHx (mother cardiomegaly, nephew has CAD) . no smoking hx. Reviewed: H&P Changes from previous H/P or p: No Changes General: Per HPI Objective Vitals Vital Signs Date Time Temp Pulse Resp B/P (MAP) Pulse Ox O2 Delivery O2 Flow Rate FiO2 10/02/24 21:00 97.6 52 17 119/63 (81) 95 97.6 10/02/24 17:58 Room Air* 0 21 Intake/Output Intake and Output 10/02/24 07:00 Intake Total 25 ml Balance 25 ml Intake IV Total 25 ml Exam GEN: Healthy appearing, well-developed, NAD. HEENT: NC/AT; MMM. CV: RRR, no m/r/g. LUNGS: CTAB, no w/r/c. ABD: Soft, NT/ND, NBS, no masses or organomegaly. EXT: skin Warm, well perfused. no rashes. No clubbing, cyanosis, or edema. NEURO: Ambulating with no limitations. No focal deficits. Medications Current Medications Medications Dose Ordered Sig/Ty Route Start Time Stop Time Status Last Admin Dose Admin Heparin Sodium/ Dextrose 250 ml @ 10 mls/hr Q24H IV 10/02/24 04:30 10/02/24 04:25 10 MLS/HR Ondansetron HCl 4 mg Q4HP PRN IV 10/02/24 05:15 Nitroglycerin 0.4 mg Q5MINP PRN SL 10/02/24 05:15 Morphine Sulfate 2 mg Q30M PRN IV 10/02/24 05:15 Atorvastatin Calcium 40 mg HS PO 10/02/24 22:00 10/02/24 22:10 40 MG Clopidogrel Bisulfate 75 mg DAILY PO 10/03/24 10:00 Aspirin 81 mg DAILY PO 10/03/24 10:00 Laboratory Results Laboratory Tests 10/02/24 01:20 Chemistry Test 10/02/24 01:20 Albumin 4.4 g/dL (3.2-4.8) Calcium Level 10.9 mg/dL (8.7-10.4) H Magnesium Level 2.4 mg/dL (1.6-2.6) Total Protein 6.9 g/dL (5.7-8.2) Coagulation Test 10/02/24 01:20 10/02/24 18:41 Prothrombin Time 10.3 sec (9.3-11.8) 10.9 sec (9.3-11.8) Prothrombin Time INR 0.97 (0.9-1.15) 1.03 (0.9-1.15) Activated Partial Thromboplast Time 32.0 SEC (24.5-34.5) 34.8 SEC (24.5-34.5) H Lipid panel Test 10/02/24 01:20 Cholesterol Level 206 mg/dL (< 200) H HDL Cholesterol 40 mg/dL (40-59) Triglycerides Level 210 mg/dL (< 150) H Cardiac Markers Test 10/02/24 01:20 B-Type Natriuretic Peptide 196.96 pg/mL (0-100) LFT Test 10/02/24 01:20 Alanine Aminotransferase (ALT) 21 U/L (7-40) Alkaline Phosphatase 62 U/L (46-116) Aspartate Amino Transferase (AST) 20 U/L (13-40) Total Bilirubin 0.6 mg/dL (0.2-1.0) HgA1c, TSH Test 10/02/24 01:20 Hemoglobin A1c 5.7 % A1C (<5.7) Thyroid Stimulating Hormone (TSH) 2.05 uIU/mL (0.55-4.78) Urinalysis Test 10/02/24 01:40 Urine Color Light-yellow (Yellow) Urine Clarity Clear (Clear) Urine pH 5.5 (5.0-9.0) Urine Specific [place] 1.007 (1.001-1.035) Urine Protein Negative (Negative) Urine Ketones 1+ (Negative) H Urine Blood Negative /uL (Negative) Urine Nitrite Negative (Negative) Urine Bilirubin Negative (Negative) Urine Urobilinogen Normal mg/dL (Negative) Urine Leukocyte Esterase Negative /uL (Negative) Urine RBC <1 /hpf (0 - 3) Urine WBC 1 /hpf (0 - 3) Urine Squamous Epithelial Cells Few /hpf (<5) Urine Bacteria None seen /hpf (None Seen) Urine Glucose Normal mg/dL (Normal) Labs and/or images reviewed: Labs reviewed by me, Image(s) reviewed by me Assessment/Plan Assessment/Plan NSTEMI CAD s/p LELAND Hypertensive urgency, resolved Dyslipidemia Obesity History of alcohol abuse - Hx Prediabetes, HTN. high risk chest pain presentation - Troponin elevated - Initial twelve lead electrocardiogram reveals normal sinus rhythm with S-T segment changes to anteroseptal leads - BP at admission 200s/130s - HEART score 7, HEMANT 4 - [facility] 10/02/24 with - DAPT, statin - continue tele - nitrostat for prn chest pain - Echo for 10/03 - for HTNl; BP control with Bblockers. ACEi can help as well. diet card DVT ppx - pt ambulating GI ppx - tolerating diet Plan discussed with: Patient Date of Service: Oct 02, 2024 Billing Provider: ASHOK MARK MD Common Visit Codes: [id number] INP/OBS CARE(HIGH) ASHOK MARK MD Oct 02, 2024 23:01
[2024-10-03] VITALS (8 sets, daily range): BP systolic 98–155; BP diastolic 56–86; PULSE 52–63; RESP 17–18; TEMP 97.4–98.1; O2SAT 94–98
[2024-10-03 05:46] LABS: Basophils # (auto) 0 10 ^3/uL (0-0.2); Basophils % (auto) 0.2 % (0.0-2.0); Eosinophils # (auto) 0.2 10 ^3/uL (0-0.8); Eosinophils % (auto) 2.6 % (0.0-7.0); Hematocrit 41.6 % (41.0-53.0); Hemoglobin 14.4 g/dL (13.5-17.5); Lymphocytes # (auto) 1.5 10 ^3/uL (0.4-5.4); Lymphocytes % (auto) 23.9 % (10.0-50.0); Mean Corpuscular Hemoglobin 32.4 pg (28.0-32.0); Mean Corpuscular Hgb Conc. 34.6 g/dL (32.0-36.0); Mean Corpuscular Volume 93.6 fL (80.0-100.0); Monocytes # (auto) 0.6 10 ^3/uL (0-1.3); Monocytes % (auto) 9.3 % (0.0-12.0); Neutrophils # (auto) 4.1 10 ^3/uL (1.6-8.6); Nucleated Red Blood Cells % 0.2 %; Platelet Count (auto) 213 10^3/uL (140-450); Red Blood Cells 4.45 10^6/uL (4.5-5.90); Red Cell Distribution Width 13.7 % (11.8-14.3); White Blood Cell 6.3 10^3/uL (4.4-10.8)
[2024-10-03 05:52] LABS: Chloride 110 mmol/L (98-107); Potassium 3.8 mmol/L (3.5-5.1); Sodium 142 mmol/L (136-145)
[2024-10-03 05:53] LABS: Anion Gap 8 (5-15); Carbon Dioxide 24 mmol/L (20-31)
[2024-10-03 05:54] LABS: Calcium 9.4 mg/dL (8.7-10.4)
[2024-10-03 05:58] LABS: BUN/Creatinine Ratio 15.3 (10.0-20.0); Blood Urea Nitrogen 13 mg/dL (9-23); Glucose 95 mg/dL (74-106)
[2024-10-03] MEDS: CLOPIDOGREL BISULFATE 75 MG TAB PO SCH (09:56)
[2024-10-03] MEDS: ASPirin 81 mg TAB PO SCH (09:56)
[2024-10-03] MEDS: METOPROLOL SUCCINATE XL 50 MG TAB PO SCH (10:03)
[2024-10-03] MEDS: LISINOPRIL 5 MG TAB PO SCH (10:03)
--- NOTE | 2024-10-03 15:32 | DVHPN2 ---
Consult Progress Note Date Seen: Oct 03, 2024 Subjective Patient reports: Feels better Other Systems: Patient remains in normal sinus rhythm on continuous monitoring analyst No cardiac events reported. Dressing to right wrist remains clean, dry, and intact. Objective vital signs Vital Sign Date Time Temp Pulse Resp B/P (MAP) Pulse Ox O2 Delivery O2 Flow Rate FiO2 10/03/24 13:00 97.8 61 18 107/62 (77) 98 97.8 10/03/24 08:00 Room Air* 0 21 Total Intake and Output 10/02/24 10/02/24 10/03/24 15:00 23:00 07:00 Intake Total 20 ml 900 ml Output Total 500 ml Balance 20 ml 400 ml medications Current Medications Medications Dose Ordered Sig/Ty Route Start Time Stop Time Status Last Admin Dose Admin Ondansetron HCl 4 mg Q4HP PRN IV 10/02/24 05:15 Nitroglycerin 0.4 mg Q5MINP PRN SL 10/02/24 05:15 Morphine Sulfate 2 mg Q30M PRN IV 10/02/24 05:15 Atorvastatin Calcium 40 mg HS PO 10/02/24 22:00 10/02/24 22:10 40 MG Clopidogrel Bisulfate 75 mg DAILY PO 10/03/24 10:00 10/03/24 09:56 75 MG Aspirin 81 mg DAILY PO 10/03/24 10:00 10/03/24 09:56 81 MG Metoprolol Succinate 25 mg DAILY PO 10/03/24 10:00 10/03/24 10:03 25 MG Lisinopril 5 mg DAILY PO 10/03/24 10:00 10/03/24 10:03 5 MG Examination: GENERAL:Normal, LUNGS:Normal, CVS:Normal, NEURO:Normal laboratory and microbiology Laboratory Tests 10/03/24 04:51 Test 10/03/24 04:51 Range/Units Serum Glucose 95 74-106 mg/dL Problem List/Assessment/Plan Problem List/Assessment/Plan Coronary artery disease s/p PTCA X 3 LELAND Hypertensive urgency, resolved Dyslipidemia Obesity History of alcohol abuse Plan/Recommendation (Dr. Mcneil): * Echocardiogram to evaluate cardiac function * Dual antiplatelet therapy with Plavix and aspirin * Lipid-lowering agent * Aggressive BP control * Initiate beta-richard * Risk factor modifications, counseled * Adherence to medication Pending transthoracic echocardiogram results. Patient to continue with dual antiplatelet therapy, beta-richard, lipid-lowering agent, and aggressive BP control. Thank you for allowing us to care for this patient. Please call with any questions or concerns. This medical document was created using an electronic medical record system with voice recognition software and computerized dictation system. Although this document has been carefully reviewed, there might still be some phonetic and typographical errors. Occasional wrong-word or ``sound-alike substitutions may have occurred due to the inherent limitations of voice recognition software. These areas are purely typographical due to imperfections of the software programs and do not reflect any compromise in the patient's medical care. Please read the chart carefully and recognize, using context, where these substitutions have occurred. Plan discussed with: Patient Date of Service: Oct 03, 2024 Billing Provider: DEDE MCNEIL MD Cardiology Common Codes: [id number] INP/OBS CARE(Mod) BELINDA ROSADO [facility] Oct 03, 2024 15:32
--- NOTE | 2024-10-03 21:13 | DVHPN2 ---
Subjective 64-year-old male wPMHx hypertension, dyslipidemia, gout, and obesity comes to ED, p/w CC chest pain x 3 weeks. Intermittent chest pain for the last three weeks but came to the emergency room after chest pain was not relieved for over 30 minutes at home, which has been the longest he has experienced the chest pain at one time. He describes the chest pain as unprovoked, intermittent, sharp in nature, substernal with radiation across left chest and down left arm. Associated symptoms include shortness of breath and fatigue. update - 10/02 - s/p cath. chest pain free currently. has some FHx (mother cardiomegaly, nephew has CAD) . no smoking hx. - 10/03 - pain has a lingering feeling in chest. but apepars well. NAD. feels better. toelrating diet. plan for echo today. Reviewed: H&P Changes from previous H/P or p: No Changes General: Per HPI Objective Vitals Vital Signs Date Time Temp Pulse Resp B/P (MAP) Pulse Ox O2 Delivery O2 Flow Rate FiO2 10/03/24 21:00 97.8 52 18 101/58 (72) 96 97.8 10/03/24 08:00 Room Air* 0 21 Intake/Output Intake and Output 10/03/24 07:00 Intake Total 920 ml Output Total 500 ml Balance 420 ml Intake Oral 900 ml IV Total 20 ml Output Urine Total 500 ml Exam GEN: Healthy appearing, well-developed, NAD. HEENT: NC/AT; MMM. CV: RRR, no m/r/g. LUNGS: CTAB, no w/r/c. ABD: Soft, NT/ND, NBS, no masses or organomegaly. EXT: skin Warm, well perfused. no rashes. No clubbing, cyanosis, or edema. NEURO: Ambulating with no limitations. No focal deficits. Medications Current Medications Medications Dose Ordered Sig/Ty Route Start Time Stop Time Status Last Admin Dose Admin Ondansetron HCl 4 mg Q4HP PRN IV 10/02/24 05:15 Nitroglycerin 0.4 mg Q5MINP PRN SL 10/02/24 05:15 Morphine Sulfate 2 mg Q30M PRN IV 10/02/24 05:15 Atorvastatin Calcium 40 mg HS PO 10/02/24 22:00 10/02/24 22:10 40 MG Clopidogrel Bisulfate 75 mg DAILY PO 10/03/24 10:00 10/03/24 09:56 75 MG Aspirin 81 mg DAILY PO 10/03/24 10:00 10/03/24 09:56 81 MG Metoprolol Succinate 25 mg DAILY PO 10/03/24 10:00 10/03/24 10:03 25 MG Lisinopril 5 mg DAILY PO 10/03/24 10:00 10/03/24 10:03 5 MG Laboratory Results Laboratory Tests 10/03/24 04:51 Chemistry Test 10/03/24 04:51 Calcium Level 9.4 mg/dL (8.7-10.4) Urinalysis Test 10/02/24 01:40 Urine Color Light-yellow (Yellow) Urine Clarity Clear (Clear) Urine pH 5.5 (5.0-9.0) Urine Specific [place] 1.007 (1.001-1.035) Urine Protein Negative (Negative) Urine Ketones 1+ (Negative) H Urine Blood Negative /uL (Negative) Urine Nitrite Negative (Negative) Urine Bilirubin Negative (Negative) Urine Urobilinogen Normal mg/dL (Negative) Urine Leukocyte Esterase Negative /uL (Negative) Urine RBC <1 /hpf (0 - 3) Urine WBC 1 /hpf (0 - 3) Urine Squamous Epithelial Cells Few /hpf (<5) Urine Bacteria None seen /hpf (None Seen) Urine Glucose Normal mg/dL (Normal) Labs and/or images reviewed: Labs reviewed by me, Image(s) reviewed by me Assessment/Plan Assessment/Plan - 10/03 - pain has a lingering feeling in chest. but apepars well. NAD. feels better. toelrating diet. plan for echo today. NSTEMI CAD s/p LELAND Hypertensive urgency, resolved Dyslipidemia Obesity History of alcohol abuse - Hx Prediabetes, HTN. high risk chest pain presentation - Troponin elevated - Initial twelve lead electrocardiogram reveals normal sinus rhythm with S-T segment changes to anteroseptal leads - BP at admission 200s/130s - HEART score 7, HEMANT 4 - LHC 10/02/24 with 3x LELAND (LAD and LCx) - echo 10/03/24 - read pending - DAPT, statin - continue tele - nitrostat for prn chest pain - Echo for 10/03 - for HTN - started BBlock metoprolol XL and lisnipriol (BP too low on 10/03. will plan to deescalate metoXL to 12.5, and keep lisnio 5) diet card DVT ppx - pt ambulating GI ppx - tolerating diet Plan discussed with: Patient Date of Service: Oct 03, 2024 Billing Provider: ASHOK AMRK MD Common Visit Codes: [id number] INP/OBS CARE(HIGH) ASHOK MARK MD Oct 03, 2024 21:13
--- NOTE | 2024-10-03 23:29 | DVHSR ---
APPROVED REPORT EXAM: Two-dimensional and M-mode echocardiogram with Doppler and color Doppler. Blood Pressure: 149/81 mmHg INDICATION Chest Pain RISK FACTORS Height: 70, Weight: 206 DIMENSIONS LVDd4.2 (3.8-5.7cm)LA (2D)3.6 (1.9-4.0cm)Aortic Root3.7 (2.0-3.7cm) LVDs2.9 (2.5-4.0cm)LA (MM) (1.9-4.0cm)Aortic Cusp Exc1.8 (1.5-2.0cm) EF (%) 60.0 (55-70%)Rt. Atrium4.1 (1.9-4.0cm)Asc. Aorta cm Mitral Valve MitralMitral Stenosis E wave0.72m/sMV Mean GR.mmHg A wave0.69m/sMV Peak GR.mmHg E/A ratio1.02D MVAcm2 DECEL [id number] 1/2 [id number] IVRTmsDop MVA2.72cm2 Aortic Valve Aortic ValveAortic Stenosis V11.48m/Minnie Mean GR.5mmHg V21.52m/[place] GR.9mmHg LVOT Diameter2.0 (1.8-2.4cm)Doppler AVA3.06cm2 Pulmonic Valve V20.93m/s Other Information Technically limited study due to body habitus. Conclusion [id number] reduced left ventricular systolic function estimated ejection fraction 40-45%. Th ere is a grade 1 diastolic dysfunction. The anterior wall anteroseptal and anteroapical wall is hypo kinetic. Normal right ventricular size and dimension. Normal right ventricular systolic function. Normal biatrial size and dimension. Normal aortic valve structure and function. Normal mitral valve structure and function. Normal tricuspid valve structure and function. The pulmonary valve is grossly normal. No pericardial effusion.
[2024-10-04 05:00] VITALS: BP 119/70; PULSE 60; RESP 16; TEMP 98.2; O2SAT 96
[2024-10-04 05:57] LABS: Basophils # (auto) 0 10 ^3/uL (0-0.2); Basophils % (auto) 0.3 % (0.0-2.0); Eosinophils # (auto) 0.2 10 ^3/uL (0-0.8); Eosinophils % (auto) 3.7 % (0.0-7.0); Hematocrit 39.5 % (41.0-53.0); Hemoglobin 13.4 g/dL (13.5-17.5); Lymphocytes % (auto) 33.6 % (10.0-50.0); Mean Corpuscular Hemoglobin 32.1 pg (28.0-32.0); Mean Corpuscular Hgb Conc. 33.8 g/dL (32.0-36.0); Mean Corpuscular Volume 94.9 fL (80.0-100.0); Monocytes # (auto) 0.6 10 ^3/uL (0-1.3); Monocytes % (auto) 10.4 % (0.0-12.0); Nucleated Red Blood Cells % 0.1 %; Platelet Count (auto) 215 10^3/uL (140-450); Red Blood Cells 4.16 10^6/uL (4.5-5.90); Red Cell Distribution Width 13.6 % (11.8-14.3); White Blood Cell 5.8 10^3/uL (4.4-10.8)
[2024-10-04 06:18] LABS: Alanine Aminotransferase 15 U/L (7-40); Albumin 3.8 g/dL (3.2-4.8); Alkaline Phosphatase 37 U/L (46-116); Anion Gap 6 (5-15); Aspartate Aminotransferase 15 U/L (13-40); Bilirubin, Total 0.7 mg/dL (0.2-1.0); Blood Urea Nitrogen 15 mg/dL (9-23); Calcium 9.7 mg/dL (8.7-10.4); Carbon Dioxide 28 mmol/L (20-31); Chloride 107 mmol/L (98-107); Glucose 103 mg/dL (74-106); Sodium 141 mmol/L (136-145)
[2024-10-04 06:19] LABS: Total Protein 6.1 g/dL (5.7-8.2)
[2024-10-04 08:00] VITALS: PULSE 49
[2024-10-04 09:00] VITALS: BP 137/78; PULSE 59; RESP 20; TEMP 97.3; O2SAT 97
[2024-10-04] MEDS ORDERED: METO25TA36 PO (10:06)
[2024-10-04] MEDS ORDERED: ROSU20CA PO (10:06)
[2024-10-04] MEDS ORDERED: ASPI-325 PO (10:06)
[2024-10-04] MEDS ORDERED: CLOP75TA70 PO (10:06)
[2024-10-04] MEDS ORDERED: LISI-275 PO (10:06)
[2024-10-04] MEDS ORDERED: NITR0.4S29 SL (10:08)
--- NOTE | 2024-10-04 10:16 | DVHDS2 ---
Discharge Summary Date of Admission Oct 02, 2024 at 05:18 Date of Discharge: Oct 04, 2024 Labs/Diagnostic Data: Laboratory Results Test 10/04/24 04:56 10/02/24 18:41 10/02/24 04:04 10/02/24 01:40 White Blood Count 5.8 10^3/uL (4.4-10.8) Red Blood Count 4.16 10^6/uL (4.5-5.90) Hemoglobin 13.4 g/dL (13.5-17.5) Hematocrit 39.5 % (41.0-53.0) Mean Corpuscular Volume 94.9 fL (80.0-100.0) Mean Corpuscular Hemoglobin 32.1 pg (28.0-32.0) Mean Corpuscular Hemoglobin Concent 33.8 g/dL (32.0-36.0) Red Cell Distribution Width 13.6 % (11.8-14.3) Platelet Count 215 10^3/uL (140-450) Mean Platelet Volume 9.4 fL (6.9-10.8) Neutrophils (%) (Auto) 52.0 % (37.0-80.0) Lymphocytes (%) (Auto) 33.6 % (10.0-50.0) Monocytes (%) (Auto) 10.4 % (0.0-12.0) Eosinophils (%) (Auto) 3.7 % (0.0-7.0) Basophils (%) (Auto) 0.3 % (0.0-2.0) Neutrophils # (Auto) 3.0 10 ^3/uL (1.6-8.6) Lymphocytes # (Auto) 2.0 10 ^3/uL (0.4-5.4) Monocytes # (Auto) 0.6 10 ^3/uL (0-1.3) Eosinophils # (Auto) 0.2 10 ^3/uL (0-0.8) Basophils # (Auto) 0 10 ^3/uL (0-0.2) Nucleated Red Blood Cells 0.1 % Sodium Level 141 mmol/L (136-145) Potassium Level 4.0 mmol/L (3.5-5.1) Chloride Level 107 mmol/L (98-107) Carbon Dioxide Level 28 mmol/L (20-31) Anion Gap 6 (5-15) Blood Urea Nitrogen 15 mg/dL (9-23) Creatinine 0.94 mg/dL (0.700-1.30) Glomerular Filtration Rate Calc 91 mL/min (>90) BUN/Creatinine Ratio 16.0 (10.0-20.0) Serum Glucose 103 mg/dL (74-106) Calcium Level 9.7 mg/dL (8.7-10.4) Total Bilirubin 0.7 mg/dL (0.2-1.0) Aspartate Amino Transferase (AST) 15 U/L (13-40) Alanine Aminotransferase (ALT) 15 U/L (7-40) Alkaline Phosphatase 37 U/L (46-116) Total Protein 6.1 g/dL (5.7-8.2) Albumin 3.8 g/dL (3.2-4.8) Prothrombin Time 10.9 sec (9.3-11.8) Prothrombin Time INR 1.03 (0.9-1.15) Activated Partial Thromboplast Time 34.8 SEC (24.5-34.5) Troponin I High Sensitivity 4573 ng/L (</=54) Urine Color Light-yellow (Yellow) Urine Clarity Clear (Clear) Urine pH 5.5 (5.0-9.0) Urine Specific [place] 1.007 (1.001-1.035) Urine Protein Negative (Negative) Urine Ketones 1+ (Negative) Urine Blood Negative /uL (Negative) Urine Nitrite Negative (Negative) Urine Bilirubin Negative (Negative) Urine Urobilinogen Normal mg/dL (Negative) Urine Leukocyte Esterase Negative /uL (Negative) Urine RBC <1 /hpf (0 - 3) Urine WBC 1 /hpf (0 - 3) Urine Squamous Epithelial Cells Few /hpf (<5) Urine Bacteria None seen /hpf (None Seen) Urine Glucose Normal mg/dL (Normal) Test 10/02/24 01:20 Hemoglobin A1c 5.7 % A1C (<5.7) Magnesium Level 2.4 mg/dL (1.6-2.6) B-Type Natriuretic Peptide 196.96 pg/mL (0-100) Triglycerides Level 210 mg/dL (< 150) Cholesterol Level 206 mg/dL (< 200) LDL Cholesterol 146 mg/dL (< 100) HDL Cholesterol 40 mg/dL (40-59) Thyroid Stimulating Hormone (TSH) 2.05 uIU/mL (0.55-4.78) Other Laboratory Tests 10/04/24 04:56 Brief Hx & Hospital Course: 64-year-old male wPMHx hypertension, dyslipidemia, gout, and obesity comes to ED, p/w CC chest pain x 3 weeks. Intermittent chest pain for the last three weeks but came to the emergency room after chest pain was not relieved for over 30 minutes at home, which has been the longest he has experienced the chest pain at one time. He describes the chest pain as unprovoked, intermittent, sharp in nature, substernal with radiation across left chest and down left arm. Associated symptoms include shortness of breath and fatigue. Hx Prediabetes, HTN. high risk chest pain presentation, Troponin elevated , Initial twelve lead electrocardiogram reveals normal sinus rhythm with S-T segment changes to anteroseptal leads, BP at admission 200s/130s, HEART score 7, HEMANT 4 , LHC 10/02/24 requiring 3x LELAND (LAD and LCx). Echo 10/03/24 with HFmrEF. patient stable on day 3. VS stable, plan made to dc patient with close follow-up. diagnosis: CAD with LELAND x3 (LADx2, Lcx x1), HFmrEF, NSTEMI, HTN urgency, HLD discharge plan: - start aspirin 81mg daily, plavix 75mg daily, crestor 20mg daily, lisinopril 5mg daily, toprol XL 25mg daily. go home after meds at bedside. - use nitrostat sublingual strip as needed for chest pain. 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 - also follow-up with PCP and DC clinic for hosppital stay review - cardiac diet (low salt) - will have to avoid NSAIDs given CAD diagnosis (avoid ibuprofen, aleve, motrin etc). prefer tylenol. - continue other home medications not mentioned above. Visitation and planning required 35 minutes Condition at Discharge: Good Final Diagnosis/Problems List CAD with LELAND x3 (LADx2, Lcx x1), HFmrEF, HLD Discharge Disposition: Home Discharge Instruct/Medications Diet: Cardiac 2g Na,low cholest Activity: No Restrictions, As Tolerated Follow Up/Referral: PCP, card Medications: as below Discharge Statement: "Patient was advised to return to the ER or call 911 if any headaches, dizziness, shortness of breath, chest pain, abdominal pain, bleeding, fevers, or worsening of medical condition. Patient was counseled about treatment plan, medications, possible side effects, patientverbalized understanding. All questions were answered to the best of my ability. This discharge took greater then 30 minutes in planning, reviewing documentation, counseling the patient, and discussing with other team members." ASSESSMENT ASSESSMENT Assessment CAD with LELAND x3 (LADx2, Lcx x1), HFmrEF, HLD Date of Service: Oct 04, 2024 Billing Provider: ASHOK MARK MD Common Visit Codes: [id number] DISCH DAY >30min ASHOK MARK MD Oct 04, 2024 10:16
--- NOTE | 2024-10-04 10:38 | DVHPN2 ---
Consult Progress Note Date Seen: Oct 04, 2024 Subjective Patient reports: Feels better Other Systems: Patient in sinus bradycardia at time of assessment. No cardiac events reported overnight, patient denies any chest pain or cardiac symptoms. Objective vital signs Vital Sign Date Time Temp Pulse Resp B/P (MAP) Pulse Ox O2 Delivery O2 Flow Rate FiO2 10/04/24 09:51 137/78 10/04/24 09:51 59 10/04/24 09:00 97.3 20 97 97.3 10/03/24 20:00 Room Air* 0 21 Total Intake and Output 10/03/24 10/03/24 10/04/24 15:00 23:00 07:00 Intake Total 1400 ml 400 ml Balance 1400 ml 400 ml medications Current Medications Medications Dose Ordered Sig/Ty Route Start Time Stop Time Status Last Admin Dose Admin Ondansetron HCl 4 mg Q4HP PRN IV 10/02/24 05:15 Nitroglycerin 0.4 mg Q5MINP PRN SL 10/02/24 05:15 Morphine Sulfate 2 mg Q30M PRN IV 10/02/24 05:15 Atorvastatin Calcium 40 mg HS PO 10/02/24 22:00 10/03/24 21:42 40 MG Clopidogrel Bisulfate 75 mg DAILY PO 10/03/24 10:00 10/04/24 09:51 75 MG Aspirin 81 mg DAILY PO 10/03/24 10:00 10/04/24 09:51 81 MG Metoprolol Succinate 25 mg DAILY PO 10/03/24 10:00 10/04/24 09:51 25 MG Lisinopril 5 mg DAILY PO 10/03/24 10:00 10/04/24 09:51 5 MG Examination: GENERAL:Normal, LUNGS:Normal, CVS:Normal, NEURO:Normal laboratory and microbiology Laboratory Tests 10/04/24 04:56 Test 10/04/24 04:56 Range/Units Serum Glucose 103 74-106 mg/dL Problem List/Assessment/Plan Problem List/Assessment/Plan Coronary artery disease s/p PTCA X 3 LELAND Acute on chronic HFmrEF, NYHA class II, newly diagnosed Hypertensive urgency, resolved Dyslipidemia Obesity History of alcohol abuse Plan/Recommendation (Dr. Mcneil): * Echocardiogram reveals EF 40-45% * Initiate guideline directed medical therapy for CHF * Dual antiplatelet therapy with Plavix and aspirin * Lipid-lowering agent * Aggressive BP control * Continue low-dose beta-richard * Risk factor modifications, counseled * Adherence to medication Patient to continue with dual antiplatelet therapy, beta-richard, lipid-lowering agent, and aggressive BP control. Add GDMT for CHF as tolerated. There is no further inpatient cardiac workup indicated at this time. Patient was educated to follow up with a therapeutic mentor in the outpatient setting in 1-2 weeks post discharge. Thank you for allowing us to care for this patient. Please call with any questions or concerns. This medical document was created using an electronic medical record system with voice recognition software and computerized dictation system. Although this document has been carefully reviewed, there might still be some phonetic and typographical errors. Occasional wrong-word or ``sound-alike substitutions may have occurred due to the inherent limitations of voice recognition software. These areas are purely typographical due to imperfections of the software programs and do not reflect any compromise in the patient's medical care. Please read the chart carefully and recognize, using context, where these substitutions have occurred. Plan discussed with: Patient Date of Service: Oct 04, 2024 Billing Provider: DEDE MCNEIL MD Cardiology Common Codes: [id number] INP/OBS CARE(Mod) BELINDA ROSADO [facility] Oct 04, 2024 10:38
[2024-10-04 12:01] VITALS: BP 137/78; PULSE 59; TEMP 36.3
[2024-10-04 13:00] VITALS: BP 104/58; PULSE 93; RESP 20; TEMP 97.5; O2SAT 96
[2024-10-05] MEDS ORDERED: EMPAGLIFLOZIN 10 MG TAB PO SCH (10:00)
== END 2024-10-04 14:30 | disposition home or self-care (01) | DRG 321 ==
LOC: ER 01:10 → EDBD 01:10 → TELE 05:18 → TELE-CENTR 05:18
PROVIDERS: ADMIT Nurse Practitioner; ATTEND Student in an Organized Health Care Education/Training Program
PROC: 027136Z Dilation of Coronary Artery, Two Arteries with Three Drug-eluting Intraluminal Devices, Percutaneous Approach (ICD-10-PCS; principal; 2024-10-02)
PROC: B211YZZ Fluoroscopy of Multiple Coronary Arteries using Other Contrast (ICD-10-PCS; 2024-10-02)
PROC: 4A023N7 Measurement of Cardiac Sampling and Pressure, Left Heart, Percutaneous Approach (ICD-10-PCS; 2024-10-02)
DX: I21.09 ST elevation (STEMI) myocardial infarction involving other coronary artery of anterior wall (principal); I50.23 Acute on chronic systolic (congestive) heart failure; E78.5 Hyperlipidemia, unspecified; F10.10 Alcohol abuse, uncomplicated; Y90.9 Presence of alcohol in blood, level not specified; E66.9 Obesity, unspecified; I11.0 Hypertensive heart disease with heart failure; I25.10 Atherosclerotic heart disease of native coronary artery without angina pectoris; M10.9 Gout, unspecified; I16.0 Hypertensive urgency; Z88.5 Allergy status to narcotic agent; Z88.6 Allergy status to analgesic agent; Z95.5 Presence of coronary angioplasty implant and graft; Z68.28 Body mass index [BMI] 28.0-28.9, adult
CPT/HCPCS: 36415; 71045; 80048; 80053; 80061; 81001; 83036; 83735; 83880; 84443; 84484; 85025; 85610; 85730; 92929; 92941; 93005; 93306; 93458; 99152; 99291; C1874; G0378; J2250; Q9967